=== PATIENT | male | born 1985 | race Two or more races ===

== ENCOUNTER 2023-06-17 12:00 | Emergency (ER) | payer OTHER ==
[~2023-06-17] VITALS: Ht 172.7 cm; Wt 74.6 kg
[2023-06-17 12:41] VITALS: BP 147/86; PULSE 70; RESP 16; TEMP 99.4; O2SAT 97
[2023-06-17] MEDS ORDERED: AMOX500T86 PO (13:25)
[2023-06-17] MEDS ORDERED: NAPR-746 PO (13:26)
[2023-06-17] MEDS ORDERED: TETANUS-DIPTH-ACEL PERTUSSIS 0.5ML SYR Tdap IM ONE (13:45)
== END 2023-06-17 14:04 | disposition home or self-care (01) ==
LOC: ER 12:00
DX: S61.431A Puncture wound without foreign body of right hand, initial encounter (principal); Z79.899 Other long term (current) drug therapy; W54.0XXA Bitten by dog, initial encounter; Y93.89 Activity, other specified; Y92.89 Other specified places as the place of occurrence of the external cause; Y99.8 Other external cause status
CPT/HCPCS: 90471; 90715